=== PATIENT | male | born 1975 | race Two or more races ===

== ENCOUNTER 2018-04-15 23:36 | Emergency (ER) | payer SELFPAY ==
[~2018-04-15] VITALS: Ht 177.8 cm; Wt 90.7 kg
[2018-04-15 23:44] VITALS: BP 158/71
== END 2018-04-16 00:26 | disposition left against medical advice (07) ==
LOC: EDBD 23:36 → ER 23:36
DX: S01.312A Laceration without foreign body of left ear, initial encounter (principal); Z53.21 Procedure and treatment not carried out due to patient leaving prior to being seen by health care provider; W19.XXXA Unspecified fall, initial encounter; Y93.89 Activity, other specified; Y99.8 Other external cause status; Y92.89 Other specified places as the place of occurrence of the external cause

== ENCOUNTER 2018-06-11 18:40 | Emergency (ER) | payer MEDICAID, OTHER ==
[~2018-06-11] VITALS: Ht 185.4 cm; Wt 90.7 kg
[2018-06-11] MEDS ORDERED: FAMOTIDINE (10MG/ML) 2ML VL IV ONE (19:30)
[2018-06-11] MEDS ORDERED: MULTIPLE VITAMIN 10 ML, MAGNESIUM SULF SDV 50% 8 MEQ in SODIUM CHLORIDE 0.9% 1,000 ML IV ONE (19:30)
[2018-06-11 19:53] LABS: Basophils # (auto) 0 uL; Eosinophils # (auto) 0 uL; Hematocrit 47.6 % (41.0-53.0); Nucleated Red Blood Cells % 0.1 %; White Blood Cell 9.6 10^3/uL (4.4-10.8)
[2018-06-11 19:54] LABS: Basophils % (auto) 0.4 % (0.0-2.0); Hemoglobin 16.2 g/dL (13.5-17.5); Lymphocytes # (auto) 3.6 uL; Lymphocytes % (auto) 37.6 % (10.0-50.0); Mean Corpuscular Hemoglobin 34.9 pg (28.0-32.0); Mean Corpuscular Volume 102.5 fL (80.0-100.0); Monocytes # (auto) 0.6 uL; Monocytes % (auto) 6.5 % (0.0-12.0); Neutrophils # (auto) 5.3 uL; Neutrophils % (auto) 55.5 % (37.0-80.0); Platelet Count (auto) 267 10^3/uL (140-450); Red Blood Cells 4.64 10^6/uL (4.5-5.90); Red Cell Distribution Width 12.9 % (11.8-14.3)
[2018-06-11 20:05] LABS: Albumin 3.7 g/dL (3.4-5.0); Calcium 8.4 mg/dL (8.5-10.1); Potassium 3.7 mmol/L (3.5-5.1)
[2018-06-11 20:09] LABS: Bilirubin, Total 0.6 mg/dL (0.2-1.0); Total Protein 7.8 g/dL (6.4-8.2)
[2018-06-11] MEDS ORDERED: ONDANSETRON HCL 4 MG/2 ML VIAL IV ONE (22:45)
[2018-06-11 23:05] LABS: Urine Bacteria NONE SEEN /hpf (None Seen); Urine Blood Negative /uL (Negative); Urine Hyaline Cast FEW /lpf (0 - 2); Urine Mucus FEW (None Seen); Urine Specific Gravity 1.014 (1.001-1.035); Urine WBC 1 /hpf (0 - 3)
[2018-06-11 23:23] LABS: Amphetamine Screen, Urine NEGATIVE (NEGATIVE); Barbiturate Scree,Urine NEGATIVE (NEGATIVE); Benzodiazephine Screen, Urine NEGATIVE (NEGATIVE); Cannabinoid Screen, Urine NEGATIVE (NEGATIVE); Cocaine Screen, Urine NEGATIVE (NEGATIVE); Opiate Scree,Urine POSITIVE (NEGATIVE); Phencyclidine Screen, Urine NEGATIVE (NEGATIVE)
[2018-06-12 00:16] VITALS: BP 138/96
== END 2018-06-12 00:30 | disposition home or self-care (01) ==
LOC: EDBD 18:40 → ER 18:43
DX: G92 Toxic encephalopathy (principal); F10.129 Alcohol abuse with intoxication, unspecified; F11.10 Opioid abuse, uncomplicated; Y90.8 Blood alcohol level of 240 mg/100 ml or more
CPT/HCPCS: 36415; 80053; 80307; 80320; 81001; 85025; 96365; 96366; 96375; 99283; J2405; J3475; J3490; J7030

== ENCOUNTER 2018-06-24 18:47 | Emergency (ER) | payer MEDICAID ==
[~2018-06-24] VITALS: Ht 190.5 cm; Wt 99.8 kg
[2018-06-24 19:00] VITALS: BP 145/91
[2018-06-24 19:41] LABS: Basophils # (auto) 0.1 uL; Eosinophils # (auto) 0 uL; Hemoglobin 16.8 g/dL (13.5-17.5); Neutrophils # (auto) 7.4 uL; Nucleated Red Blood Cells % 0.1 %
[2018-06-24 19:58] LABS: Basophils % (auto) 0.4 % (0.0-2.0); Eosinophils % (auto) 0.1 % (0.0-7.0); Lymphocytes # (auto) 6.1 uL; Lymphocytes % (auto) 42.2 % (10.0-50.0); Mean Corpuscular Hemoglobin 34.7 pg (28.0-32.0); Mean Corpuscular Hgb Conc. 33.6 g/dL (32.0-36.0); Mean Corpuscular Volume 103.5 fL (80.0-100.0); Monocytes # (auto) 0.8 uL; Monocytes % (auto) 5.7 % (0.0-12.0); Neutrophils % (auto) 51.6 % (37.0-80.0); Platelet Count (auto) 324 10^3/uL (140-450); Red Blood Cells 4.83 10^6/uL (4.5-5.90); Red Cell Distribution Width 12.9 % (11.8-14.3); White Blood Cell 14.4 10^3/uL (4.4-10.8)
[2018-06-24 20:03] LABS: Calcium 8.5 mg/dL (8.5-10.1); Potassium 3.7 mmol/L (3.5-5.1)
[2018-06-24 20:06] LABS: BUN/Creatinine Ratio 12.4; Bilirubin, Total 0.6 mg/dL (0.2-1.0); Total Protein 8.3 g/dL (6.4-8.2)
[2018-06-24 20:16] LABS: Salicylate < 1.7 mg/dL (2.8-20.0)
[2018-06-24 20:20] LABS: Acetaminophen < 2.0 ug/mL (10-30)
== END 2018-06-25 02:28 | disposition left against medical advice (07) ==
LOC: ER 18:47
DX: R42 Dizziness and giddiness (principal); Z53.21 Procedure and treatment not carried out due to patient leaving prior to being seen by health care provider
CPT/HCPCS: 36415; 80053; 80320; 80329; 85025

== ENCOUNTER 2018-07-12 23:06 | Emergency (ER) | payer MEDICAID ==
[~2018-07-12] VITALS: Ht 172.7 cm; Wt 99.8 kg
[2018-07-13 00:01] LABS: Basophils # (auto) 0 uL; Basophils % (auto) 0.5 % (0.0-2.0); Eosinophils # (auto) 0 uL; Hemoglobin 15.5 g/dL (13.5-17.5)
[2018-07-13 00:03] LABS: Eosinophils % (auto) 0.3 % (0.0-7.0); Hematocrit 46.3 % (41.0-53.0); Lymphocytes # (auto) 3.2 uL; Lymphocytes % (auto) 32.2 % (10.0-50.0); Mean Corpuscular Hemoglobin 34.4 pg (28.0-32.0); Mean Corpuscular Hgb Conc. 33.5 g/dL (32.0-36.0); Mean Corpuscular Volume 102.6 fL (80.0-100.0); Monocytes # (auto) 0.7 uL; Monocytes % (auto) 6.6 % (0.0-12.0); Neutrophils % (auto) 60.4 % (37.0-80.0); Nucleated Red Blood Cells % 0.2 %; Platelet Count (auto) 261 10^3/uL (140-450); Red Blood Cells 4.51 10^6/uL (4.5-5.90); White Blood Cell 9.9 10^3/uL (4.4-10.8)
[2018-07-13 01:10] VITALS: BP 158/100
[2018-07-13 01:42] LABS: Alanine Aminotransferase 81 U/L (16-61); Albumin 3.9 g/dL (3.4-5.0); Anion Gap 9 (5-15); BUN/Creatinine Ratio 7.3; Blood Urea Nitrogen 8 mg/dL (7-18); Calcium 8.5 mg/dL (8.5-10.1); Carbon Dioxide 24 mmol/L (21-32); Chloride 112 mmol/L (98-107); GFR African American 95 mL/min; GFR Non-African American 79 mL/min; Glucose 123 mg/dL (74-106); Potassium 3.9 mmol/L (3.5-5.1); Sodium 145 mmol/L (136-145)
[2018-07-13 01:51] LABS: Alkaline Phosphatase 86 U/L (45-117); Aspartate Aminotransferase 69 U/L (15-37); Bilirubin, Total 0.4 mg/dL (0.2-1.0); Total Protein 7.8 g/dL (6.4-8.2)
== END 2018-07-13 01:27 | disposition left against medical advice (07) ==
LOC: EDBD 23:06 → ER 23:09
DX: T40.601A Poisoning by unspecified narcotics, accidental (unintentional), initial encounter (principal); R06.03 Acute respiratory distress; Z53.29 Procedure and treatment not carried out because of patient's decision for other reasons; Y92.89 Other specified places as the place of occurrence of the external cause
CPT/HCPCS: 36415; 36600; 71045; 80053; 82805; 83880; 84484; 85025; 93005; 94761

== ENCOUNTER 2018-08-26 03:01 | Emergency (ER) | payer SELFPAY ==
[~2018-08-26] VITALS: Ht 170.2 cm; Wt 83.9 kg
== END 2018-08-26 03:18 | disposition left against medical advice (07) ==
LOC: ER 03:01
DX: Z02.89 Encounter for other administrative examinations (principal)

== ENCOUNTER 2018-11-21 15:31 | Emergency (ER) | payer MEDICAID ==
[~2018-11-21] VITALS: Ht 190.5 cm; Wt 97.5 kg
[2018-11-21 17:02] VITALS: BP 158/87
== END 2018-11-21 17:06 | disposition home or self-care (01) ==
LOC: ER 15:32
DX: S90.32XA Contusion of left foot, initial encounter (principal); W22.8XXA Striking against or struck by other objects, initial encounter; Y93.39 Activity, other involving climbing, rappelling and jumping off; Y99.8 Other external cause status; Y92.89 Other specified places as the place of occurrence of the external cause
CPT/HCPCS: 73630

== ENCOUNTER 2019-06-02 06:35 | Inpatient (IN) | payer MEDICAID ==
[~2019-06-02] VITALS: Ht 190.5 cm; Wt 93.1 kg
[2019-06-02] MEDS ORDERED: ALBUTEROL SULF 2.5 MG/0.5ML(0.5%) NEB SOLN NEB ONE (07:45)
[2019-06-02] MEDS ORDERED: IPRATROPIUM BROM 0.5 MG/2.5ML INH SOL NEB ONE (07:45)
[2019-06-02 07:57] LABS: Basophils # (auto) 0 uL; Eosinophils # (auto) 0 uL; Hematocrit 48.3 % (41.0-53.0); Hemoglobin 16.6 g/dL (13.5-17.5); Mean Corpuscular Hemoglobin 34.5 pg (28.0-32.0); Mean Corpuscular Hgb Conc. 34.5 g/dL (32.0-36.0); Nucleated Red Blood Cells % 0.1 %
[2019-06-02 08:00] LABS: Basophils % (auto) 0.3 % (0.0-2.0); Eosinophils % (auto) 0.2 % (0.0-7.0); Lymphocytes # (auto) 2.3 uL; Lymphocytes % (auto) 18.3 % (10.0-50.0); Mean Corpuscular Volume 100.2 fL (80.0-100.0); Monocytes # (auto) 0.7 uL; Monocytes % (auto) 5.3 % (0.0-12.0); Neutrophils # (auto) 9.7 uL; Neutrophils % (auto) 75.9 % (37.0-80.0); Platelet Count (auto) 285 10^3/uL (140-450); Red Blood Cells 4.82 10^6/uL (4.5-5.90); Red Cell Distribution Width 13.4 % (11.8-14.3); White Blood Cell 12.8 10^3/uL (4.4-10.8)
[2019-06-02 08:31] LABS: Albumin 4.1 g/dL (3.4-5.0); Calcium 9.1 mg/dL (8.5-10.1); Potassium 3.3 mmol/L (3.5-5.1); Salicylate < 1.7 mg/dL (2.8-20.0)
[2019-06-02 08:35] LABS: BUN/Creatinine Ratio 10.1; Bilirubin, Total 1.4 mg/dL (0.2-1.0); Total Protein 8.2 g/dL (6.4-8.2)
[2019-06-02 08:49] LABS: Acetaminophen < 2.0 ug/mL (10-30)
[2019-06-02] MEDS ORDERED: POTASSIUM EFFERVESENT TAB 25 MEQ PO ONE (11:00)
[2019-06-02] MEDS ORDERED: SODIUM CHLORIDE 0.9% 1,000 ML IVB ONE (15:57)
[2019-06-02 18:15] LABS: Urine Bacteria NONE SEEN /hpf (None Seen); Urine Blood Negative /uL (Negative); Urine Hyaline Cast FEW /lpf (0 - 2); Urine Mucus FEW (None Seen); Urine Specific Gravity 1.023 (1.001-1.035); Urine WBC 2 /hpf (0 - 3)
[2019-06-02] MEDS ORDERED: cefTRIAXone 1GM/50ML D5W 50 ML IV ONE (18:15)
[2019-06-02 18:23] LABS: Amphetamine Screen, Urine POSITIVE (NEGATIVE); Barbiturate Scree,Urine NEGATIVE (NEGATIVE); Benzodiazephine Screen, Urine NEGATIVE (NEGATIVE); Cannabinoid Screen, Urine NEGATIVE (NEGATIVE); Cocaine Screen, Urine NEGATIVE (NEGATIVE); Opiate Scree,Urine POSITIVE (NEGATIVE); Phencyclidine Screen, Urine NEGATIVE (NEGATIVE)
[2019-06-02] MEDS: SODIUM CHLORIDE 0.9% 1,000 ML IV SCH (22:28)
[2019-06-02] MEDS ORDERED: DOCUSATE SOD 100 MG CAP PO PRN (22:30)
[2019-06-02] MEDS ORDERED: HYDROcodone-ACET 5/325MG TAB PO PRN (22:30)
[2019-06-02] MEDS ORDERED: TEMAZEPAM 15 MG CAP PO PRN (22:30)
[2019-06-02] MEDS ORDERED: ACETAMINOPHEN 325 MG TAB PO PRN (22:30)
[2019-06-02] MEDS ORDERED: LORazepam 0.5 MG TAB PO PRN (22:30)
[2019-06-02] MEDS ORDERED: ONDANSETRON HCL 4 MG/2 ML VIAL IV PRN (22:30)
[2019-06-02] MEDS ORDERED: MORPHINE SULFATE 4 MG/ML SYR/VIAL IV PRN (22:30)
[2019-06-02 23:55] VITALS: BP 134/80
--- NOTE | 2019-06-02 23:55 | NUR ---
Telemetry admit from ER ANMOLEMMA admitted to Telemetry unit after SBAR received. Patient oriented to KAVON VALLADARES, RN primary RN, unit, room, bed, and unit policies regarding patient care and visiting hours. Patient now on continuous telemetry monitoring, tele box #26 and telemetry reading on arrival to unit is ST. Patient placed on bedside oxygen 4L, weighed by bedscale and encouraged to call if they need something. Safety measures in place side rails x2 up, bed in lowest position, and call light within reach. All questions and concerns addressed, patient verbalized understanding.
[2019-06-03] VITALS (7 sets, daily range): BP systolic 124–141; BP diastolic 73–80
[2019-06-03 06:02] LABS: Basophils # (auto) 0 uL; Eosinophils # (auto) 0 uL; Eosinophils % (auto) 0.2 % (0.0-7.0); Hemoglobin 14.5 g/dL (13.5-17.5)
[2019-06-03 06:04] LABS: Basophils % (auto) 0.3 % (0.0-2.0); Hematocrit 41.3 % (41.0-53.0); Lymphocytes # (auto) 1.6 uL; Lymphocytes % (auto) 10.4 % (10.0-50.0); Mean Corpuscular Volume 99.9 fL (80.0-100.0); Monocytes # (auto) 0.4 uL; Neutrophils # (auto) 12.8 uL; Neutrophils % (auto) 86.1 % (37.0-80.0); Nucleated Red Blood Cells % 0.1 %; Platelet Count (auto) 207 10^3/uL (140-450); Red Blood Cells 4.13 10^6/uL (4.5-5.90); Red Cell Distribution Width 13.3 % (11.8-14.3); White Blood Cell 14.9 10^3/uL (4.4-10.8)
[2019-06-03 06:39] LABS: Calcium 8.2 mg/dL (8.5-10.1); Potassium 3.6 mmol/L (3.5-5.1)
[2019-06-03 06:46] LABS: BUN/Creatinine Ratio 12.7
--- NOTE | 2019-06-03 07:30 | NUR ---
Opening Shift Note Assumed care of patient, awake and alert. No S/S of distress/SOB or pain. Instructed on POC and to call for assist PRN, will continue to monitor for changes Q1hr and PRN.
--- NOTE | 2019-06-03 12:30 | NUR ---
Rounds Patient awake and alert. No S/S of distress/SOB or pain. Will continue to monitor changes q1hr and PRN.
[2019-06-03] MEDS: SODIUM CHLORIDE 0.9% 1,000 ML IV SCH (15:50)
--- NOTE | 2019-06-03 16:30 | NUR ---
RoundS Patient awake and alert. No S/S of distress/SOB or pain. Will continue to monitor changes q1hr and PRN.
[2019-06-03] MEDS ORDERED: chlordiazePOXIDE HCL 25 MG CAP PO PRN (17:00)
[2019-06-03] MEDS ORDERED: guaiFENesin-DM 100/10mg/5ml SYR PO PRN (18:15)
--- NOTE | 2019-06-03 18:45 | NUR ---
TELE-PSYCH COMPUTER SET UP IN THE ROOM.
--- NOTE | 2019-06-03 19:20 | NUR ---
Opening Shift Note Assumed care of patient, awake and alert. No S/S of distress/SOB or pain. Safety measures in place side rails up x2, bed in lowest position, and call light within reach. Instructed on POC and to call for assist PRN, will continue to monitor for changes Q1hr and PRN.
[2019-06-03] MEDS: GABAPENTIN 100 MG CAP PO SCH (19:22)
[2019-06-03] MEDS: THIAMINE 100mg/ml INJ (200mg/2ml VIAL) IV SCH (19:23)
[2019-06-03] MEDS: levoFLOXacin 500MG 100 ML IV SCH (19:23)
[2019-06-03] MEDS: ALBUTEROL SULF 2.5 MG/0.5ML(0.5%) NEB SOLN NEB SCH (21:07)
[2019-06-03] MEDS: IPRATROPIUM BROM 0.5 MG/2.5ML INH SOL NEB SCH (21:08)
[2019-06-03] MEDS: FOLIC ACID 1 MG in D5W 5% 50 ML IV SCH (21:37)
--- NOTE | 2019-06-04 | NUR ---
Patient informed Yuliana NEVAREZ that Tele pysch evaluation was performed. Awaiting call from physician. Will continue to monitor.
[2019-06-04 05:00] VITALS: BP 131/95
[2019-06-04 05:00] LABS: Basophils # (auto) 0 uL; Eosinophils # (auto) 0.1 uL; Mean Corpuscular Hemoglobin 35.1 pg (28.0-32.0); Neutrophils # (auto) 9.8 uL; Red Cell Distribution Width 13.2 % (11.8-14.3)
[2019-06-04 05:04] LABS: Basophils % (auto) 0.3 % (0.0-2.0); Eosinophils % (auto) 0.6 % (0.0-7.0); Hematocrit 41.5 % (41.0-53.0); Hemoglobin 14.6 g/dL (13.5-17.5); Lymphocytes # (auto) 1.4 uL; Lymphocytes % (auto) 11.9 % (10.0-50.0); Mean Corpuscular Hgb Conc. 35.2 g/dL (32.0-36.0); Mean Corpuscular Volume 99.9 fL (80.0-100.0); Monocytes # (auto) 0.6 uL; Monocytes % (auto) 4.8 % (0.0-12.0); Neutrophils % (auto) 82.4 % (37.0-80.0); Platelet Count (auto) 197 10^3/uL (140-450); Red Blood Cells 4.15 10^6/uL (4.5-5.90); White Blood Cell 11.9 10^3/uL (4.4-10.8)
[2019-06-04 05:21] LABS: Calcium 8.6 mg/dL (8.5-10.1); Potassium 3.7 mmol/L (3.5-5.1)
[2019-06-04 05:25] LABS: BUN/Creatinine Ratio 10.1
[2019-06-04] MEDS: IPRATROPIUM BROM 0.5 MG/2.5ML INH SOL NEB SCH ×4 (06:21→18:37)
[2019-06-04] MEDS: ALBUTEROL SULF 2.5 MG/0.5ML(0.5%) NEB SOLN NEB SCH ×4 (06:21→18:37)
--- NOTE | 2019-06-04 08:00 | NUR ---
INITIAL ASSESSMENT CALM APPROPRIATE. DENIES ANY DISCOMFORT. EXPLAINED POC. PHONE HOSPITAL CLERK LOANED.
[2019-06-04 09:00] VITALS: BP 128/87
[2019-06-04] MEDS: FOLIC ACID 1 MG in D5W 5% 50 ML IV SCH (10:00)
[2019-06-04] MEDS: THIAMINE 100mg/ml INJ (200mg/2ml VIAL) IV SCH (10:00)
[2019-06-04] MEDS: GABAPENTIN 100 MG CAP PO SCH (10:00)
[2019-06-04] MEDS: levoFLOXacin 500MG 100 ML IV SCH (11:00)
[2019-06-04 13:00] VITALS: BP 121/83
--- NOTE | 2019-06-04 15:26 | NUR ---
Assessment and SS consult Pt is a 43 yr old alert and oriented male. SS consult given for "Two overdosed within 1 year, temporary housing, limited support." Pt lives with friends and has a place to go back to upon d/c. Pt named his daughter Deidre Arredondo, as his emergency contact at [phone]. Pt uses no DME and was ambulatory and independent with ADL's prior to admit. Pt stated that he has no Primary Doctor and would be interested in help to find a primary Doctor, SW referred pt to Marina Wills. Pt has no income and stated that he is supposed to start a job soon. No AD. SW assessed pt's desire for substance abuse resources. Pt stated that he hadn't done drugs in a long time so when he decided to use them again at the same dosage, it must have been too much for him and he overdosed on it. Pt stated that he has no desire to do drugs again and declined needing substance abuse resources at this time. Pt declined depressive symptoms as well. Pt stated that he will most likely be able to have a friend transport him home. Pt will d/c home upon medical clearance. No needs assessed. Addendum: 06/04/19 at 1538 by LAVERNE VALLADARES Amended: Links added.
--- NOTE | 2019-06-04 15:31 | NUR ---
D/C Planning Per consult for Safety evaluation. Faxed order to [facility] Fax:). Placed followed up called to [facility], spoke to Nunu. Per Nunu patient has been accepted and service to start within 24-48hrs upon d/c day Ph:). Faxed order to [facility] requesting authorization. Received followed up called from [facility] with [facility] providing authorization for [facility] [id number].
--- NOTE | 2019-06-04 16:13 | NUR ---
[employer] REPORT REQUESTED EARLIER AND RECEIVED VIA FAX NOW ON CHART. DR. Anat LOPEZ CALLS FOR REQUEST PT OFF O2 AND PLACED ON O2 SAT FOR WHEN HE ROUNDS.
[2019-06-04] MEDS ORDERED: FOLI1TAB6 PO (16:56)
[2019-06-04] MEDS ORDERED: LEVO500T21 PO (16:56)
[2019-06-04] MEDS ORDERED: ALBUAER3 IN (16:56)
[2019-06-04] MEDS ORDERED: THIA50CA PO (16:56)
[2019-06-04 17:00] VITALS: BP 135/86
--- NOTE | 2019-06-04 17:55 | NUR ---
PREPARING FOR DC HOME.
--- NOTE | 2019-06-04 18:37 | NUR ---
Respiratory note: SCHEDULED MED NEB TX NOT GIVEN. PT IS DISCHARGED AND JUST WAITING FOR RIDE. NO RESP DISTRESS NOTED.
[2019-06-04 19:03] VITALS: BP 121/83
--- NOTE | 2019-06-04 20:51 | NUR ---
Discharge instructions given as ordered. Encourage to follow up with PMD as instructed. All questions and concerns addressed. Patient verbalized understanding. IV removed with catheter intact, pressure dressing applied. Telemetry unit returned to ICU. Patient taken to vehicle via wheelchair with all personal belongings, accompanied by staff and family member. No distress noted at time of departure.
== END 2019-06-04 20:48 | disposition home health service (06) | DRG 812 ==
LOC: EDBD 06:35 → ER 06:35 → TELE 06:36 → TELE-CENTR 23:39
PROVIDERS: ADMIT Hospitalist; ATTEND Internal Medicine
DX: T50.901A Poisoning by unspecified drugs, medicaments and biological substances, accidental (unintentional), initial encounter (principal); J96.01 Acute respiratory failure with hypoxia; J69.0 Pneumonitis due to inhalation of food and vomit; F10.129 Alcohol abuse with intoxication, unspecified; D75.89 Other specified diseases of blood and blood-forming organs; E87.6 Hypokalemia; J45.901 Unspecified asthma with (acute) exacerbation; J20.9 Acute bronchitis, unspecified; Z79.899 Other long term (current) drug therapy; Y92.89 Other specified places as the place of occurrence of the external cause
CPT/HCPCS: 36415; 36600; 71045; 80048; 80053; 80061; 80307; 80320; 80329; 81001; 82805; 83036; 83880; 85025; 93005; 94640; 96361; 96365; G0378; J0696; J1956; J7060